=== PATIENT | female | born 1990 | race Hispanic/Latino ===

== ENCOUNTER 2017-09-24 19:27 | Emergency (ER) | payer OTHER ==
[2017-09-24 20:50] LABS: KETONE, URINE AUTO RFX NEGATIVE (NEGATIVE); LEUKOCYTE ESTERASE UR AUTO RFX NEGATIVE (NEGATIVE); NITRITE, URINE AUTO RFX NEGATIVE (NEGATIVE); RBC, URINE AUTO RFX 3 /HPF (0-3); SPECIFIC GRAVITY UR AUTO RFX 1.024 (1.002-1.035); SQUAM EPITHELIAL CELL UR AURFX 1 /HPF (0-6); WBC, URINE AUTO RFX 1 /HPF (0-3)
[2017-09-24 22:53] LABS: HCG, SERUM QUANTITATIVE 178 MIU/ML
[2017-09-24 23:54] LABS: CHLAMYDIA DNA AMPLIFICATION NEGATIVE (NEGATIVE); GC DNA AMPLIFICATION NEGATIVE (NEGATIVE)
[2017-09-24] MEDS: metroNIDAZOLE (FLAGYL) 500 MG TAB PO (23:56)
== END 2017-09-25 00:02 | disposition home or self-care (01) ==
LOC: M ED 09-25 00:02
DX: O20.0 Threatened abortion (principal); N76.0 Acute vaginitis; N83.292 Other ovarian cyst, left side; G50.0 Trigeminal neuralgia; Z79.899 Other long term (current) drug therapy
CPT/HCPCS: 76801

== ENCOUNTER → 2017-09-26 | Outpatient (CLI) | payer OTHER ==
[2017-09-26 17:13] LABS: HCG, SERUM QUANTITATIVE 166 MIU/ML
== END ==
LOC: M LAB 16:27
DX: N93.9 Abnormal uterine and vaginal bleeding, unspecified (principal)

== ENCOUNTER 2017-10-08 19:57 | Emergency (ER) | payer OTHER ==
[2017-10-08 21:51] LABS: BASO # 0.1 10^3/uL (0.0-0.2); BASO % 0.7 % (0.0-1.0); EOS # 0.2 10^3/uL (0.0-0.50); EOS % 2.1 % (0.0-3.0); HEMATOCRIT 37.3 % (36.0-47.0); HEMOGLOBIN 12.7 g/dl (12.0-16.0); IMMATURE GRANULOCYTE % 0.5 % (0-3.0); LYMPH # 2.9 10^3/uL (1.5-6.5); LYMPH % 34.3 % (24.0-44.0); MEAN CORPUSCULAR HEMOGLOBIN 31.7 pg (27.0-33.0); MONO # 0.7 10^3/uL (0.0-0.8); MONO % 8.6 % (0.0-5.0); NEUTROPHILS # 4.6 10^3/uL (1.8-7.7); NEUTROPHILS % 53.8 % (36.0-66.0); PLATELET COUNT, AUTOMATED 218 10^3/uL (150-450); RED BLOOD COUNT 4.01 10^6/uL (4.00-5.40); WHITE BLOOD COUNT 8.5 10^3/uL (4.0-10.0)
[2017-10-08 22:19] LABS: HCG, SERUM QUANTITATIVE 36 MIU/ML
[2017-10-08 22:29] LABS: KETONE, URINE AUTO RFX NEGATIVE (NEGATIVE); LEUKOCYTE ESTERASE UR AUTO RFX NEGATIVE (NEGATIVE); NITRITE, URINE AUTO RFX NEGATIVE (NEGATIVE); RBC, URINE AUTO RFX 0 /HPF (0-3); SPECIFIC GRAVITY UR AUTO RFX 1.004 (1.002-1.035); SQUAM EPITHELIAL CELL UR AURFX 0 /HPF (0-6); WBC, URINE AUTO RFX 0 /HPF (0-3)
[2017-10-08 23:45] LABS: CHLAMYDIA DNA AMPLIFICATION NEGATIVE (NEGATIVE); GC DNA AMPLIFICATION NEGATIVE (NEGATIVE)
== END 2017-10-09 00:55 | disposition home or self-care (01) ==
LOC: M ED 10-09 00:55
DX: O03.9 Complete or unspecified spontaneous abortion without complication (principal); G50.0 Trigeminal neuralgia; H91.92 Unspecified hearing loss, left ear
CPT/HCPCS: 76801

== ENCOUNTER 2017-11-01 00:19 | Emergency (ER) | payer OTHER | END 2017-11-01 01:50 | disposition home or self-care (01) | LOC: M ED 00:19 | DX: N64.4 Mastodynia (principal); Z86.69 Personal history of other diseases of the nervous system and sense organs | CPT/HCPCS: 76642 ==

== ENCOUNTER 2018-06-18 20:20 | Emergency (ER) | payer OTHER | END 2018-06-18 21:14 | disposition home or self-care (01) | LOC: M ED 20:20 | DX: R13.10 Dysphagia, unspecified (principal); G50.0 Trigeminal neuralgia | CPT/HCPCS: 99282 ==